=== PATIENT | female | born 1980 | race Caucasian/White ===

== ENCOUNTER 2017-09-29 09:54 | Inpatient (IN) | payer OTHER ==
[2017-09-29] MEDS ORDERED: Ondansetron HCl/PF 4 MG/2 ML Vial IVP PRN ×5 (10:18→16:01)
[2017-09-29] MEDS ORDERED: Promethazine HCl 25 MG/ML VIAL IM PRN ×3 (10:18→14:38)
[2017-09-29 10:29] VITALS: BMI 44.4
[2017-09-29] MEDS ORDERED: CEFAZOLIN/Water 2 GM/20 ML SYRINGE SLOW IVP SCH (10:30)
[2017-09-29] MEDS ORDERED: Bicitra 30 ML UDCUP PO SCH (10:30)
[2017-09-29] MEDS ORDERED: Morphine PF 1 MG/ML SYR ONE (11:00)
[2017-09-29] MEDS ORDERED: Bupivacaine 0.75% W/DEXTROSE 8.25% 2 ML AMP ONE (11:01)
[2017-09-29] MEDS ORDERED: Lidocaine 1% PF 5 ML VIAL ONE ×2 (11:01→12:08)
[2017-09-29] MEDS ORDERED: Oxytocin 10 UNITS/ML VIAL ONE ×3 (11:01→12:34)
[2017-09-29] MEDS ORDERED: Ketorolac Tromethamine 30 MG/ML VIAL ONE ×2 (11:01→14:56)
[2017-09-29] MEDS ORDERED: PHENYLEPHRINE-NS 100 MCG/ML 10 ML SYRINGE ONE (11:01)
[2017-09-29 11:12] LABS: Mean Corpuscular HGB CONC 35.4 g/dL (32.0-36.0); Mean Corpuscular Hemoglobin 29.8 pg (27.0-31.0); Mean Corpuscular Volume 84.3 fL (78.0-98.0); Mean Platelet Volume 6.8 fL (7.4-10.4); Platelet Count 240 thou/uL (130-400); RBC Distribution Width 14.1 % (11.5-14.5); Red Blood Cell (RBC) Count 4.04 mill/uL (4.20-5.40); White Blood Cell (WBC) Count 8.6 thou/uL (4.8-10.8)
[2017-09-29] MEDS ORDERED: ePHEDrine/0.9% NaCl/PF SYRINGE 50 mg/10 ml ONE (11:15)
[2017-09-29] MEDS: Lactated Ringer's 1,000 ML IV SCH (11:25)
--- NOTE | 2017-09-29 11:27 | PDOC.LDHP ---
Labor and Delivery H&P Chief complaint: contractions HPI: 37yo at 38w3d by LMP c/o painful ctx since 0600 this am, pink spotting fluid and decr FM. Current gestational age (weeks): 38 Due date: 10/10/17 Dating criteria: last menstrual period Grav: 5 Para: 4 OB History Details: PRIOR C/S X 4 Current complications: none Abnormal US findings: No Past Medical History: denies Current medications: pre- vitamins Previous surgical history: low tranverse CS (x4), other (breast reduction) Allergies/Adverse Reactions: Allergies Allergy/AdvReac Type Severity Reaction Status Date / Time No Known Allergies Allergy Unverified 09/29/17 10:24 Social history: none - Physical Exam Vital signs reviewed and normal: yes General: NAD Heart: RRR Lungs: CTAB Abdomen: gravid Extremeties: no edema FHT: category 2, late decelerations [place] contractions every: 3min - Vaginal Exam cm dilated: 1 Effacement: 75% Station: -2 (No ROM on SSE, bloody mucus in cervical os.) - OB Labs Blood type: B RH: negative Antibody Screen: negative HIV: negative RPR: negative HEPSAg: negative 1 hour GCT: negative GBS: positive Urine drug screen: not done Rubella: immune - Assessment L&D Assessment: term patient in labor - Plan Plan: admit to L&D, to OR for section, informed consent obtained, anesthesia consult for pain management -: Late decels in office, on arrival to L&D and after IV fluids FHT Cat 1. Proceed to OR for Early labor with 4 prior scars.
--- NOTE | 2017-09-29 11:31 | PDOC.OPDEL ---
OB Operative/Delivery Note Delivery Dr/Surgeon: Leodan Assist: Zack Pre-Delivery Diagnosis: active labor, non-reassuring tracing Procedure/Post Delivery Dx: repeat low transverse CS Weeks gestation: 38 Anesthesia: spinal - Findings A Sex: female - Additional Findings/Plan Post delivery plan: routine recovery
[2017-09-29 11:45] LABS: HBSAg Index 0.19 S/CO (0-0.99); Hep B Surf Ag Non-Reactive S/CO (NonReactive)
[2017-09-29 11:46] LABS: Syphilis Antibody Nonreactive (Nonreactive); Syphilis Antibody Index 0.07 S/CO (<1.00 Non-Reactive)
[2017-09-29] MEDS ORDERED: Fentanyl 100 MCG/2 ML VIAL ONE (11:52)
[2017-09-29] MEDS ORDERED: Lidocaine 1% (PF) 30 ML VIAL ONE (12:02)
[2017-09-29] MEDS ORDERED: PROPOFOL 20 ML ONE (12:16)
[2017-09-29] MEDS ORDERED: Midazolam HCl 2 mg/2 ml Vial ONE (12:22)
[2017-09-29] MEDS ORDERED: SUGAMMADEX SODIUM 500 MG/5 ML VIAL ONE (12:43)
[2017-09-29] MEDS ORDERED: Naloxone HCl 0.4 mg/ml Vial IVP PRN ×2 (13:22)
[2017-09-29] MEDS ORDERED: Ketorolac Tromethamine 30 MG/ML VIAL IVP PRN (13:22)
[2017-09-29] MEDS ORDERED: HYDROmorphone 2 MG/ML VIAL SLOW IVP PRN (13:22)
[2017-09-29] MEDS ORDERED: Naloxone HCl 0.4 mg/ml Vial IV PRN ×2 (13:22→14:38)
[2017-09-29] MEDS ORDERED: diphenhydrAMINE 50 MG/ML VIAL IVP PRN ×2 (13:22→14:38)
[2017-09-29] MEDS ORDERED: Eucerin (Mineral Oil/Petrolatum,White) 30 gm Jar TOP PRN (13:22)
[2017-09-29] MEDS ORDERED: Promethazine HCl 25 MG SUPP PR PRN (13:22)
[2017-09-29] MEDS ORDERED: Meperidine HCl/PF 25 MG/ML VIAL SLOW IVP PRN (13:22)
[2017-09-29] MEDS ORDERED: Communication Order-Pharmacy FS SCH ×2 (13:30→14:45)
[2017-09-29] MEDS ORDERED: Ketorolac Tromethamine 30 MG/ML VIAL IVP SCH (13:30)
[2017-09-29] MEDS ORDERED: Meperidine HCl/PF 25 MG/ML VIAL ONE (13:58)
[2017-09-29] MEDS ORDERED: diphenhydrAMINE 25 MG CAP PO PRN ×2 (14:38→16:01)
[2017-09-29] MEDS ORDERED: Morphine CADD 1 MG/ML CADD IVPB PRN (14:38)
[2017-09-29] MEDS ORDERED: diphenhydrAMINE 50 MG/ML VIAL IM PRN (14:38)
[2017-09-29] MEDS ORDERED: Zolpidem Tartrate 5 MG TAB PO PRN (14:38)
[2017-09-29] MEDS ORDERED: PROPOFOL 200 MG/20 ML VIAL ONE (14:56)
[2017-09-29] MEDS ORDERED: Succinylcholine Chloride 20 MG/ML 10 ml SYRINGE FS ONE (14:56)
[2017-09-29] MEDS ORDERED: Ondansetron HCl/PF 4 MG/2 ML Vial ONE (14:56)
[2017-09-29] MEDS ORDERED: HYDROcodone/Acetaminophen 5/325 mg Tablet PO PRN ×2 (16:01)
[2017-09-29] MEDS ORDERED: Bisacodyl 10 MG SUPP PR PRN (16:01)
[2017-09-29] MEDS ORDERED: Lanolin Ointment 7 GM TUBE TOP PRN (16:01)
[2017-09-29] MEDS ORDERED: Adacel (T-DAP) 0.5 ML VIAL IM ONE (16:01)
[2017-09-29] MEDS ORDERED: Acetaminophen 325 MG TAB PO PRN (16:01)
[2017-09-29] MEDS: Ferrous Sulfate 325 MG TAB PO SCH (16:40)
--- NOTE | 2017-09-29 21:27 | OP ---
DATE OF SERVICE: 09/29/2017 INDICATIONS FOR PROCEDURE: Ms. Isabel Reid had a repeat performed by Dr. Ximena Alcocer as primary surgeon. I functioned as Dr. Alcocer's family practice physician assistant on this case.
[2017-09-29] MEDS: Docusate Calcium (SURFAK) 240 MG CAP PO SCH (23:17)
[2017-09-30] MEDS: Lactated Ringer's 1,000 ML IV SCH (01:30)
[2017-09-30] MEDS: Simethicone Chewable 80 MG TAB PO PRN (04:39)
[2017-09-30 06:02] LABS: Hemoglobin 10.4 g/dL (12.0-16.0); Mean Corpuscular HGB CONC 35.9 g/dL (32.0-36.0); Mean Corpuscular Hemoglobin 30.6 pg (27.0-31.0); Mean Corpuscular Volume 85.2 fL (78.0-98.0); Mean Platelet Volume 6.8 fL (7.4-10.4); Platelet Count 195 thou/uL (130-400); RBC Distribution Width 14.3 % (11.5-14.5); Red Blood Cell (RBC) Count 3.41 mill/uL (4.20-5.40); White Blood Cell (WBC) Count 8.4 thou/uL (4.8-10.8)
[2017-09-30] MEDS: Ferrous Sulfate 325 MG TAB PO SCH ×2 (09:17→15:47)
--- NOTE | 2017-09-30 09:28 | PDOC.PP ---
Post Progress Note Post Day #: 1 Subjective: doing well, voiding, ambulating and tolerating clear liq diet. PO intake tolerated: yes Flatus: yes Ambulation: yes Vital Signs (12 hours) Temp Pulse Resp BP 09/30/17 07:49 98.1 F 71 20 115/63 09/30/17 07:35 98.1 F 71 20 09/30/17 04:00 98.1 F 72 18 110/57 L 09/30/17 02:00 20 09/29/17 23:40 98.2 F 74 20 109/53 L 09/29/17 22:00 18 Weight Weight 275 lb - Physical Examination General: NAD Respiratory: non-labored breathing Abdominal: no distention, appropriately TTP Extremities: negative homans (B) Skin: CS incision dry & intact, no rash Neurological: no gross focal deficits Psychiatric: A&Ox3, normal affect Result Diagrams: 09/30/17 05:29 Additional Labs: Post Labs Blood Type B NEGATIVE 09/29/17 10:55 Hep Bs Antigen Non-Reactive S/CO (NonReactive) 09/29/17 10:55 (1) delivery delivered Code(s): O82 - ENCOUNTER FOR DELIVERY WITHOUT INDICATION Status: Acute - Assessment/Plan POD1 doing well, continue pumping for baby in NICU reviewed, continue post op care.
[2017-09-30] MEDS: Prenatal Vitamin 1 TAB PO SCH (10:19)
[2017-09-30] MEDS: Docusate Calcium (SURFAK) 240 MG CAP PO SCH ×2 (10:19→21:11)
[2017-09-30] MEDS ORDERED: HYDROcodone/Acetaminophen 5/325 mg Tablet PO PRN (11:49)
--- NOTE | 2017-09-30 13:05 | OP ---
DATE OF PROCEDURE: 09/29/2017 PREOPERATIVE DIAGNOSES: 1. Intrauterine at 38 weeks and 3 days. 2. Early labor. 3. Nonreassuring heart tones. 4. Prior x4. 5. Advanced maternal age. 6. Obesity. POSTOPERATIVE DIAGNOSES: 1. Intrauterine at 38 weeks and 3 days. 2. Early labor. 3. Nonreassuring heart tones. 4. Prior x4. 5. Advanced maternal age. 6. Obesity. 7. Uterine window. PROCEDURE: Repeat low transverse section via Pfannenstiel skin incision. ANESTHESIA: General. ATTENDING SURGEON: Pretty Alcocer M.D. PHYSICIAN COMPENSATION ANALYST: Dr. Jose Dixon ESTIMATED BLOOD LOSS: 500 mL. Quantitative blood clot loss pending. PATHOLOGY: None. DRAINS: Varela catheter. COMPLICATIONS: None. FINDINGS: A female , cephalic presentation, clear amniotic fluid, no nuchal cord. Apgars and weight are currently pending; however, the infant was vigorous immediate at . Placenta was deli isaura spontaneously. Upon entering into the abdominal cavity and taking the bladder off the lower ut erine segment, a uterine ____ was present that was approximately 1 cm in diameter where membranes wer e visible and this was the entry site of the hysterotomy as no incision was necessary. The bladder w as taken down well below this level prior to entry and the urine was clear following the procedure. OPERATIVE INDICATIONS: A 37-year-old G5, P4 presented at 38 weeks presented to my office with compla ints of painful contractions for the last 3 hours. She was found to have contractions every 2-3 [place]. Her cervix was 1 cm dilated and her baby in the office NST was having late decels with approxim ately 50% of the contractions so she was sent over with disposition for delivery. At the hospital af ter IV was placed and fluid resuscitation was performed there were accelerations with moderate variab ility and no decels in the baby. The contractions continued. The patient was then taken back to the operating room. OPERATIVE TECHNIQUE: The patient was taken to the operating room where spinal anesthesia was obtaine d; however, was ineffective on testing, even after waiting approximately 20 minutes in Trendelenburg position. The patient was prepped and draped in a sterile fashion in the dorsal supine position with a leftward tilt. After general anesthesia was induced an ET tube was placed. A Pfannenstiel skin i ncision was made through the prior scar and carried down to the subcutaneous tissue with th e knife. The fascia was nicked in the midline with the knife and carried laterally with the Reece sci ssors. The superior aspect of the fascia was tented with 2 Kochers and dissected off the rectus with the Reece scissors. The inferior aspect of the fascia was tented with 2 Kochers and dissected off th e rectus down to the pubic symphysis. The peritoneum was bluntly entered into and manually retracted and there were adhesions of the bladder to the lower uterine segment and this was taken down careful ly with the Metzenbaums. After performing this the uterine window was noted in the mid portion of th e uterus. A finger was entered into the window and the hysterotomy was extended with the Angulo maneuv er. The infant's head was brought to the hysterotomy and delivered with fundal pressure. Delayed co rd clamping was performed as the infant was vigorous. The infant was handed to awaiting linnea team. T he placenta was allowed to spontaneously deliver. The uterus was cleared of all clots and debris wit h a laparotomy sponge and the hysterotomy was repaired with a #1 Monocryl in a running locking fashio n. A second [id number] #1 Monocryl was placed on the lower aspect of the mid portion of the hys terotomy for hemostasis. Irrigation of the pelvis was performed and hemostasis was noted. SurgiSeal was placed over the hysterotomy and the Ramón O was removed out of the abdomen. The rectus muscles were examined and noted to be hemostatic. The fascia was reapproximated with a #1 PDS x2 with excel lent reapproximation. Subcutaneous tissue was irrigated and cauterized of any bleeders reapproximate d with a 2-0 plain gut in a running fashion. The skin was closed with 4-0 Monocryl in subcuticular f ashion. Dermabond was applied as well as a pressure dressing. The patient tolerated the procedure w ell. Sponge, lap and needle counts correct x2. The patient was taken to recovery in stable conditio n. The patient received Ancef 3 grams prior to procedure.
[2017-09-30] MEDS: Ibuprofen 800 MG TAB PO SCH ×2 (14:12→21:11)
[2017-09-30] MEDS: HYDROcodone/Acetaminophen 5/325 mg Tablet PO PRN (21:12)
[2017-10-01] MEDS: Ibuprofen 800 MG TAB PO SCH ×3 (06:22→21:08)
[2017-10-01] MEDS: HYDROcodone/Acetaminophen 5/325 mg Tablet PO PRN ×3 (06:22→20:41)
--- NOTE | 2017-10-01 07:34 | PDOC.PP ---
Post Progress Note Post Day #: 2 PO intake tolerated: yes Flatus: yes Ambulation: yes Vital Signs (12 hours) Temp Pulse Resp BP BP 10/01/17 00:00 97.4 F L 80 18 101/56 L 09/30/17 20:00 97.5 F L 84 20 109/62 Weight Weight 275 lb - Physical Examination General: NAD Cardiovascular: RRR Respiratory: non-labored breathing Abdominal: no distention, appropriately TTP Fundus firm & at: umb Skin: CS incision dry & intact Neurological: no gross focal deficits Psychiatric: normal affect Result Diagrams: 09/30/17 05:29 Additional Labs: Post Labs Blood Type B NEGATIVE 09/29/17 10:55 Hep Bs Antigen Non-Reactive S/CO (NonReactive) 09/29/17 10:55 - Assessment/Plan POD2 s/p RCS at 38w due to spont labor VSSAF Doing well appropriate milestones Hgb 10.4, mild asx anemia due to surgical blood loss, cont PNV on DC Breastpumping, baby in NICU Rh neg baby Rh neg, RImm Pt c/o increased anxiety and prev was on zoloft after the of her last child, desires to start low dose zoloft to help prevent worsening and risk for PPD. Cont Postop care.
[2017-10-01] MEDS: Docusate Calcium (SURFAK) 240 MG CAP PO SCH ×2 (09:20→20:41)
[2017-10-01] MEDS: Prenatal Vitamin 1 TAB PO SCH (09:20)
[2017-10-01] MEDS: Ferrous Sulfate 325 MG TAB PO SCH ×2 (09:20→16:46)
[2017-10-02] MEDS: HYDROcodone/Acetaminophen 5/325 mg Tablet PO PRN (03:22)
[2017-10-02] MEDS: Ibuprofen 800 MG TAB PO SCH ×3 (05:52→21:42)
--- NOTE | 2017-10-02 08:29 | PDOC.PP ---
Post Progress Note Post Day #: 3 PO intake tolerated: yes Flatus: yes Ambulation: yes Weight Weight 275 lb - Physical Examination General: NAD Respiratory: non-labored breathing Abdominal: no distention, appropriately TTP Fundus firm & at: umb-2 Skin: CS incision dry & intact Neurological: no gross focal deficits Psychiatric: normal affect Result Diagrams: 09/30/17 05:29 Additional Labs: Post Labs Blood Type B NEGATIVE 09/29/17 10:55 Hep Bs Antigen Non-Reactive S/CO (NonReactive) 09/29/17 10:55 - Assessment/Plan POD3 s/p RCS VSSAF Doing well met all milestones pain controlled Rh pos RImm Cont zoloft on DC DC home FU 2w inc/mood check
[2017-10-02] MEDS: Docusate Calcium (SURFAK) 240 MG CAP PO SCH ×2 (09:24→21:42)
[2017-10-02] MEDS: Prenatal Vitamin 1 TAB PO SCH (09:24)
[2017-10-02] MEDS: Ferrous Sulfate 325 MG TAB PO SCH ×3 (09:25→17:00)
[2017-10-02] MEDS: Simethicone Chewable 80 MG TAB PO PRN (21:43)
[2017-10-03] MEDS: Ibuprofen 800 MG TAB PO SCH (06:10)
--- NOTE | 2017-10-03 06:34 | PDOC.EVN ---
Event Note - Event Note Event Note: Ready for home. VSS. Landa. ELLEN home, RTC with Dr. Alcocer in 2 weeks.
[2017-10-03 08:03] VITALS: BP 120/76; TEMP 98
[2017-10-03] MEDS: Ferrous Sulfate 325 MG TAB PO SCH (08:15)
[2017-10-03] MEDS: Prenatal Vitamin 1 TAB PO SCH (10:34)
[2017-10-03] MEDS: Docusate Calcium (SURFAK) 240 MG CAP PO SCH (10:34)
== END 2017-10-03 12:30 | disposition home or self-care (01) | DRG 765 ==
LOC: L&D 09:54 → 3SW 15:55
PROVIDERS: ADMIT Student in an Organized Health Care Education/Training Program; ATTEND Student in an Organized Health Care Education/Training Program
PROC: 10D00Z1 Extraction of Products of Conception, Low, Open Approach (ICD-10-PCS; principal; 2017-09-29)
DX: O34.211 Maternal care for low transverse scar from previous cesarean delivery (principal); D62 Acute posthemorrhagic anemia; Z68.41 Body mass index [BMI] 40.0-44.9, adult; Z3A.39 39 weeks gestation of pregnancy; Z37.0 Single live birth; O76 Abnormality in fetal heart rate and rhythm complicating labor and delivery; O99.214 Obesity complicating childbirth; E66.9 Obesity, unspecified; Q51.818 Other congenital malformations of uterus; O90.89 Other complications of the puerperium, not elsewhere classified; O99.02 Anemia complicating childbirth
CPT/HCPCS: 36415; 51702; 85027; 86780; 86850; 86900; 86901; 87340; J1885; J2001; J2175; J2250; J2274; J2405; J2590; J2704; J3010; J3490